=== PATIENT | female | born 1955 | race Caucasian/White ===

== ENCOUNTER → 2016-07-01 | Day surgery (SDC) | payer SELFPAY ==
[2016-07-01 12:04] LABS: HCT 37.2 % (37.0-47.0); HGB 12.5 g/dl (12.5-16.0); MCH 30.6 pg (25.0-31.0); MCHC 33.6 g/dL (32.0-36.0); MPV 10.5 fL (6.0-9.5); RBC 4.09 M/uL (4.20-5.40); RDW 13.7 % (11.5-14.0); WBC 8.6 K/uL (4.0-10.5)
[2016-07-01 12:42] LABS: ALBUMIN 4.2 g/dL (3.5-5.0); BILIRUBIN - TOTAL 0.3 mg/dL (0.1-1.0); CREATININE 0.7 mg/dL (0.5-1.0); GLOBULIN (CALCULATION) 2.8 g/dL (2.2-4.2)
[2016-07-01 12:49] LABS: POTASSIUM 5.1 mmol/L (3.5-5.1)
== END | disposition home or self-care (01) ==
LOC: FAS 11:20
PROVIDERS: Surgery
DX: Z12.11 Encounter for screening for malignant neoplasm of colon (principal); K57.30 Diverticulosis of large intestine without perforation or abscess without bleeding; K58.9 Irritable bowel syndrome, unspecified; K62.5 Hemorrhage of anus and rectum; I10 Essential (primary) hypertension; I27.2 Other secondary pulmonary hypertension; I47.2 Ventricular tachycardia; J98.4 Other disorders of lung; E66.9 Obesity, unspecified; E11.9 Type 2 diabetes mellitus without complications; E78.00 Pure hypercholesterolemia, unspecified; E03.9 Hypothyroidism, unspecified; E78.5 Hyperlipidemia, unspecified; E21.3 Hyperparathyroidism, unspecified; N20.0 Calculus of kidney; G47.30 Sleep apnea, unspecified; Z90.49 Acquired absence of other specified parts of digestive tract; Z90.89 Acquired absence of other organs; Z88.2 Allergy status to sulfonamides; Z95.0 Presence of cardiac pacemaker; Z82.61 Family history of arthritis; Z82.5 Family history of asthma and other chronic lower respiratory diseases; Z83.49 Family history of other endocrine, nutritional and metabolic diseases; Z83.3 Family history of diabetes mellitus; Z82.49 Family history of ischemic heart disease and other diseases of the circulatory system; Z87.19 Personal history of other diseases of the digestive system; Z80.1 Family history of malignant neoplasm of trachea, bronchus and lung; Z79.84 Long term (current) use of oral hypoglycemic drugs; Z79.82 Long term (current) use of aspirin; Z79.4 Long term (current) use of insulin; Z79.899 Other long term (current) drug therapy; Z98.890 Other specified postprocedural states
CPT/HCPCS: 36415; 80053; J2704

== ENCOUNTER 2020-08-20 14:46 | Emergency (ER) | payer OTHER ==
[~2020-08-20 14:46] MED LIST: ALDACTONE25 MG PO; ANUCORT-HC25 MG PR; ASPIRIN CHEWABL81 MG PO; BENTYL10 MG PO; BIOTIN1000 MCG PO; BUMEX1 MG PO; CINNAMON500 MG PO; COLACE100 MG PO; COREG 6.25MG6.25 MG PO; DUONEB 2.5-0.5M1 AMP INH; FENOFIBRATE54 MG PO; INSULIN ASPART SC; JANUVIA50 MG PO; K-DUR20 MEQ PO; L-LYSINE500 MG PO; LANTUS **100 UNITS/ SC; LEVSIN-SL0.125 M1 SL; LIPITOR20 MG PO; LOMOTIL1 EACH PO; LOVAZA1 G1 PO; MEDROL 4MG DOSEP4 MG PO; METFORMIN HCL500 MG PO; METRONIDAZOLE500 MG PO; MIRALAX17 GM PO; MUCINEX 600MG600 MG PO; NASONEX NAS120 PUFFS; NIACIN ER500 MG PO; ONDANSETRON ODT4 MG PO; PRINIVIL10 MG PO; SINGULAIR10 MG PO; SYMBICORT 80-10.2 GM INH; SYNTHROID125 MCG PO; TRIAMTERENE-HC1 EACH PO; TYLENOL325 M1 PO; UROCIT-K10 MEQ PO; VANCOCIN HCL125 MG PO; VITAMIN D PO; WELCHOL625 MG PO; ZYRTEC10 M3 PO
[2020-08-20 16:37] LABS: BASOPHIL 0.7 % (0-2); EOSINOPHIL 2.1 % (0-7); HCT 48.2 % (37.0-47.0); HGB 16.1 g/dl (12.5-16.0); LYMPHOCYTE 18.7 % (15-48); MCH 31.2 pg (25.0-31.0); MCHC 33.4 g/dL (32.0-36.0); MCV 93.4 fL (78.0-100.0); MPV 10.8 fL (6.0-9.5); NEUTROPHIL 67.7 % (41-80); NRBC 0; PLT 197 K/uL (150-400); RBC 5.16 M/uL (4.20-5.40); WBC 15.5 K/uL (4.0-10.5)
[2020-08-20 16:41] LABS: BILIRUBIN NEGATIVE (NEGATIVE); BLOOD NEGATIVE Ery/uL (NEGATIVE); CLARITY CLEAR (CLEAR); COLOR YELLOW (YELLOW); GLUCOSE (U) 3+ mg/dL (NORMAL); LEUKOCYTES NEGATIVE Leu/uL (NEGATIVE); NITRITE NEGATIVE (NEGATIVE); PROTEIN NEGATIVE (NEGATIVE); SPECIFIC GRAVITY 1.015 (1.001-1.030); UROBILINOGEN 0.2 mg/dL (0.2-1.0); pH 5.5 (5.0-9.0)
[2020-08-20 16:53] LABS: ALBUMIN 3.6 g/dL (3.4-5.0); BILIRUBIN - TOTAL 0.5 mg/dL (0.2-1.0); BUN/CREAT RATIO (CALC) 36.7 RATIO; CREATININE 1.2 mg/dL (0.51-0.95); GLOBULIN (CALCULATION) 3.5 g/dL; POTASSIUM 4.4 mmol/L (3.5-5.1); TOTAL PROTEIN 7.1 g/dL (6.4-8.2)
== END 2020-08-20 18:05 | disposition home or self-care (01) ==
LOC: FER 14:46
PROVIDERS: Emergency Medicine
DX: R10.11 Right upper quadrant pain (principal); R10.13 Epigastric pain; I10 Essential (primary) hypertension; I27.20 Pulmonary hypertension, unspecified; E11.9 Type 2 diabetes mellitus without complications; Z87.19 Personal history of other diseases of the digestive system; Z90.49 Acquired absence of other specified parts of digestive tract; Z95.0 Presence of cardiac pacemaker; Z88.2 Allergy status to sulfonamides
CPT/HCPCS: 36415; 71045; 80053; 81003; 82150; 83690; 85025; J1885; J2405